=== PATIENT | male | born 1975 | race African-American/Black ===

== ENCOUNTER 2020-12-27 13:08 | Emergency (ER) | payer OTHER, SELFPAY ==
[2020-12-27 13:25] VITALS: BP 160/82; PULSE 70; RESP 20; TEMP 36.8; O2SAT 96
--- NOTE | 2020-12-27 13:40 | ED.SYNCOPE ---
HPI - Syncope General Chief Complaint: Syncope Stated Complaint: Fell out at work Source: patient Mode of arrival: ambulatory Limitations: no limitations History of Present Illness HPI narrative: 45-year-old male presents to [facility] stating that he had a syncopal episode at work today at 9:50 AM. Patient reports that he was standing and reaching for a beam and the next thing he remembered was waking up to people yelling his name. Patient is unsure of the exact amount of time that the syncopal episode lasted. Patient denies any current symptoms. Patient denies chest pain, shortness of breath, headache, dizziness, blurred vision, nausea or vomiting. Patient reports that he lives in [place] but is here working. Patient denies prior syncopal episode MD complaint: collapsed Onset (ago): hour(s) (4) Prodromal symptoms: none Injuries sustained associated with event: none Current symptoms: none Treatments prior to arrival: none Related Data Home Medications Medication Instructions Recorded Confirmed No Home Medications 12/27/20 12/27/20 Allergies Allergy/AdvReac Type Severity Reaction Status Date / Time No Known Allergies Allergy Verified 12/27/20 13:32 Review of Systems Constitutional: Constitutional: Denies chills, Denies fatigue, Denies fever(s) and Denies weakness Eyes: Eyes: Denies change in vision and Denies photophobia ENT: Denies dysphagia, Denies vertigo and Denies dizziness Cardiovascular: Cardiovascular: Denies chest pain, Denies rapid heart rate, Denies radiating jaw, neck or arm pain and Denies slow heart rate Respiratory: Respiratory: Denies dyspnea and Denies wheezing Gastrointestinal: Gastrointestinal: Denies diarrhea, Denies nausea and Denies vomiting Neurologic: Denies vertigo, Denies dizziness, Reports syncope, Denies headache(s), Denies focal weakness, Denies numbness and Denies weakness PMFSH Family History Family History (Updated 12/27/20 @ 13:43 by Angy Marshall APRN) Father Stomach cancer Social History Social History (Updated 12/27/20 @ 13:43 by Angy Marshall APRN) Smoking status: Never smoker Gender identity (if verbalized by the patient): Male Comments At time of signature, I agree with nursing past medical, surgical, social and family history. There is no relevant family history pertinent to the presenting complaint. Exam Const: General: healthy appearing and no acute distress Orientation/consciousness: patient oriented x3 Eyes: Conjunctivae: conjunctivae normal Pupils: Equal, round and reactive pupils present Neck: Neck: normal visual inspection Resp: Effort & Inspection: normal respiratory effort, not labored and not tachypneic Auscultation: clear to auscultation bilaterally Cardio: Rate: regular rate, not bradycardic and not tachycardic Rhythm: regular rhythm GI: Inspection: non-distended GI Palp: Yes Soft to palpation, No Tenderness to palpation present (GI), No Guarding due to palpation present (GI) and No Rebound tenderness present Neuro: General: patient oriented x3, moves all extremities, no meningeal signs and no focal motor deficits Cranial nerves: Yes Nystagmus not present and No Nystagmus present Speech: normal speech and No Abnormal speech present Gait exam (Neuro): Normal gait present Extrem: General: normal to inspection Psych: Appearance: grossly normal Mental Status: mental status grossly normal Affect: normal affect Attitude: cooperative Thought content: Yes Normal thought content present Course Vital Signs Vital signs: Vital Signs Temperature 36.8 C 12/27/20 13:25 Pulse Rate 70 12/27/20 13:25 Respiratory Rate 12/27/20 13:25 Blood Pressure 160/82 H 12/27/20 13:25 Pulse Oximetry 96 12/27/20 13:25 Temperature 36.8 C 12/27/20 13:25 Pulse Rate 70 12/27/20 13:25 Respiratory Rate 20 12/27/20 13:25 Blood Pressure 160/82 H 12/27/20 13:25 Pulse Oximetry 96 12/27/20 13:25 MDM - Sync
[2020-12-27 13:47] LABS: Glucose Point of Care 107 mg/dl (65-105)
[2020-12-27 13:50] VITALS: BP 147/61; PULSE 63
[2020-12-27 13:52] VITALS: BP 126/76; PULSE 63
[2020-12-27 13:54] VITALS: BP 122/75; PULSE 70
--- NOTE | 2020-12-27 14:10 | ECG_ITS ---
Measurements Intervals [place] Rate: 60 P: 41 SC: 226 QRS: -70 QRSD: 175 T: 10 QT: 451 QTc: 452 Interpretive Statements SINUS RHYTHM WITH FIRST DEGREE AV BLOCK RIGHT BUNDLE BRANCH BLOCK LEFT ANTERIOR FASCICULAR BLOCK ABNORMAL ECG Electronically Signed On 12-27-2020 17:04:54 CDT by Yahir López D.O.
== END 2020-12-27 14:15 | disposition left against medical advice (07) ==
PROVIDERS: Emergency Provider Nurse Practitioner Family
DX: R55 Syncope and collapse (principal)
CPT/HCPCS: 82948; 93005; 99213; G0463

== ENCOUNTER 2020-12-27 14:40 | Emergency (ER) | payer OTHER, SELFPAY ==
--- NOTE | ~2020-12-27 | CT_ITS ---
EXAMINATION: CT brain wo con DATE: 12/27/2020 17:09 INDICATION: Syncope. Diffuse headache. TECHNIQUE: Computed tomography (CT) of the head was performed without intravenous contrast. The mA wa s adjusted according to patient size. Iterative reconstruction technique was employed. Exam dose: 60 5.33 mGy-cm total exam DLP. COMPARISON: None FINDINGS: No intracranial mass lesion or hemorrhage or cerebrovascular accident is detected. No midli ne shift or mass effect effect. Minimal bilateral basal ganglia calcification. Mild left carotid siphon internal carotid artery calci fication. No subdural or epidural hematoma. Normal ventricular size. No orbital mass lesion. Included paranasal sinuses and the mastoid air cells are unremarkable. No fracture or bone destruction of the cranial vault. IMPRESSION: No significant abnormality Reviewed, dictated and finalized at [facility]. Reviewed, dictated and finalized at [facility]. IMPRESSION: No significant abnormality
[2020-12-27 14:49] VITALS: BP 150/86; RESP 16; O2SAT 98
--- NOTE | 2020-12-27 14:52 | ECG_ITS ---
Measurements Intervals [place] Rate: 68 P: 41 DE: 225 QRS: -63 QRSD: 161 T: 5 QT: 433 QTc: 461 Interpretive Statements SINUS RHYTHM WITH FIRST DEGREE AV BLOCK RIGHT BUNDLE BRANCH BLOCK ABNORMAL ECG Electronically Signed On 12-27-2020 17:06:43 CDT by Yahir López D.O.
[2020-12-27 15:07] LABS: Basophils Percent Auto 0.5 % (0.2-1.2); Eosinophils Absolute Auto 0.1 K/mm3 (0-0.3); Eosinophils Percent Auto 0.9 % (0-4.4); Hematocrit 41.4 % (42.0-52.0); Hemoglobin 13.1 g/dL (14.0-18.0); Immature Granulocyte Absolute 0.03 K/mm3 (0.00-0.031); Immature Granulocyte Percent A 0.5 % (0-0.5); Lymphocytes Absolute Auto 2.07 K/mm3 (0.9-3.2); Lymphocytes Percent Auto 31.8 % (18.3-44.2); Mean Corpuscular HGB Conc 31.6 g/dl (32-36); Mean Corpuscular Hemoglobin 23.6 pg (26-34); Mean Corpuscular Volume 74.7 fl (80-100); Mean Platelet Volume 10.2 fl (7.4-10.4); Monocytes Absolute Auto 0.8 K/mm3 (0.1-0.6); Neutrophils Absolute Auto 3.5 K/mm3 (1.3-6.7); Neutrophils Percent Auto 54.3 % (45.5-73.1); Platelet Count Result 213 k/mm3 (150-375); Red Blood Count 5.54 M/mm3 (4.6-6.20); Red Cell Distribution Width 14.6 % (11.5-14.5); White Blood Count 6.5 K/mm3 (4.5-10.0)
[2020-12-27 15:13] LABS: Anion Gap 9 mmol/L (8-16); Blood Urea Nitrogen 12 mg/dL (9-20); Calcium 9.4 mg/dL (8.4-10.2); Carbon Dioxide 28 mmol/L (22-30); Chloride 104 mmol/L (98-107); Estimated CRCL calculation 124 ml/min; Estimated Glomerular Filt Rate > 60; Glucose 101 mg/dL (75-110); Potassium 3.9 mmol/L (3.4-5.0); Sodium 141 mmol/L (137-145)
[2020-12-27 16:35] VITALS: BP 137/88; PULSE 73; RESP 17; O2SAT 98
--- NOTE | 2020-12-27 17:48 | ED.GENADULT ---
HPI - General Adult General Chief complaint: Syncope Stated complaint: syncope Time Seen by Provider: 12/27/20 16:50 Source: patient History of Present Illness HPI narrative: Patient is a 45 y/o male complaining of syncopal episode. He states that he was at work and passed out. He remember people standing around him calling his name when he was sitting on the ground. He is not sure how long he was out for. He denies any injury from fall down. He has no headache, neck pain, back pain, chest pain or abdominal pain. He has no focal weakness or numbness. He is able to walk without difficulty. Of note, he was evaluated at [facility] and left AMA. Related Data Home Medications Medication Instructions Recorded Confirmed No Home Medications 12/27/20 12/27/20 Allergies Allergy/AdvReac Type Severity Reaction Status Date / Time No Known Allergies Allergy Verified 12/27/20 13:32 Review of Systems Constitutional: Constitutional: Denies chills, Denies fever(s), Denies headache(s) and Denies weakness Eyes: Eyes: Denies blurry vision ENT: Denies headache(s) and Denies neck pain Cardiovascular: Cardiovascular: Denies chest pain and Denies dyspnea Respiratory: Respiratory: Denies cough and Denies dyspnea Gastrointestinal: Gastrointestinal: Denies abdominal pain, Denies diarrhea, Denies nausea and Denies vomiting Genitourinary: Genitourinary: Denies hematuria and Denies dysuria Musculoskeletal: Musculoskeletal: Denies back pain and Denies neck pain Neurologic: Reports syncope, Denies headache(s) and Denies weakness [facility] Family History Family History Father Stomach cancer Social History Social History Smoking status: Never smoker Gender identity (if verbalized by the patient): Male Exam Const: General: no acute distress and well developed Orientation/consciousness: oriented to person, oriented to place, oriented to time and patient oriented x3 HENMT: Head: normocephalic Ears: external ears normal General nose exam: Normal external nose present Eyes: General: appearance normal, both eyes and all related structures Conjunctivae: conjunctivae normal Neck: Neck: normal visual inspection and full ROM Chest: Chest palpation & inspection: normal inspection of the chest and no tenderness Resp: Effort & Inspection: normal respiratory effort Auscultation: clear to auscultation bilaterally Cardio: Rate: regular rate Rhythm: regular rhythm GI: GI Palp: No abdominal tenderness and Yes Soft to palpation Skin: General skin exam: normal color and turgor normal Neuro: General: oriented to person, oriented to place, oriented to time and patient oriented x3 Cranial nerves: Yes CN's II-XII intact bilaterally Cognition (Neuro): normal cognition Speech: normal speech Motor exam (neuro): 5/5 motor strength present throughout Sensory Exam: normal sensation Coordination: [id number] test normal and cauh-hb-thum test normal Extrem: General: normal to inspection, full ROM and no pedal edema Psych: Appearance: grossly normal Mental Status: mental status grossly normal Affect: normal affect Course Reevaluation(s) Reevaluation #1: I advised patient to be admitted for observation. I also offered contacting O/C physician for close follow up if he wants to be discharged. He refuses both options. He states that he just wants a note for going back to work. I informed patient that it's better to have a more comprehensive evaluation before going back to work. Patient does not want to have anything else done. I informed patient of the risks of arrhythmia, sudden etc. Patient still does not want any further evaluation. He wants to leave A. He is awake, alert and competent to make medical decision for himself. He is instructed to follow up with PCP DANYA. Date: 12/27/20 Time: 17:50 Vital Signs Vital signs: Vital Signs
== END 2020-12-27 17:48 | disposition left against medical advice (07) ==
LOC: ANHED 17:19
PROVIDERS: Emergency Provider Emergency Medicine
DX: R55 Syncope and collapse (principal); I44.0 Atrioventricular block, first degree; I45.10 Unspecified right bundle-branch block
CPT/HCPCS: 36415; 70450; 80048; 85025; 93005; 99284

== ENCOUNTER 2022-10-29 15:46 | Emergency (ER) | payer OTHER, SELFPAY ==
--- NOTE | ~2022-10-29 | CT_ITS ---
EXAMINATION: CT abdomen pelvis wo con DATE: 10/29/2022 17:25 INDICATION: Hematuria TECHNIQUE: Computed tomography (CT) of the abdomen and pelvis was performed without intravenous contr ast. Automated exposure control and iterative reconstruction technique were employed. Exam dose: 155 1.21 mGy-cm total exam DLP. COMPARISON: None. 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 Normal heart size. No pericardial or pleural effusion. The liver, gallbladder, bile ducts, pancreas, pancreatic duct, spleen, and adrenal glands are unremar kable. There is a punctate nonobstructing cortical calcification of the anterior mid right kidney. Oc casional small renal cysts are suggested. No ureteral calculus or hydroureteronephrosis. The urinary bladder and prostate gland appear unremarkable. Normal caliber of the abdominal aorta. No intraperitoneal or retroperitoneal or pelvic mass lesion or adenopathy or ascites. Normal appendix. Minimal sigmoid diverticulosis; no CT evidence of diverticulitis. No bowel obstructi on, bowel wall thickening, pneumatosis or intraperitoneal free air is detected. No suspicious osteolytic or osteoblastic lesions. IMPRESSION: Pinpoint nonobstructing right renal calculus Small renal probable cysts Normal appendix Minimal diverticulosis of the colon; no evidence of diverticulitis Reviewed, dictated and finalized at [facility]. Reviewed, dictated and finalized at [facility].
[2022-10-29 15:48] VITALS: BP 160/72; PULSE 97; RESP 18; TEMP 36.6; O2SAT 100
[2022-10-29 16:31] LABS: Appearance Urine Clear (Clear); Bacteria Urine None Seen /hpf; Bilirubin Urine Negative (Negative); Blood Urine 3+ (Negative); Color Urine Dark Yellow (Yellow); Glucose Urine UA Negative (Negative); Ketones Urine Trace mg/dL (Negative); Leukocyte Esterase Ur Trace LEU/UL (Negative); Nitrate Urine Negative (Negative); Non Pathogenic Casts 0-2; Protein Urine 2+ mg/dL (Negative); RBC Urine >100 /hpf (0-2); Specific Grav Ur 1.031 (1.001-1.035); Squamous Epithelial Cell Urine None seen /hpf (Few); WBC Urine 0-5 /hpf
[2022-10-29 16:33] LABS: Add Urine Microscopic? YES
--- NOTE | 2022-10-29 17:40 | ED.GENADULT ---
HPI - General Adult General Chief complaint: Urogenital-Male Stated complaint: hematuria, burning Time Seen by Provider: 10/29/22 15:54 History of Present Illness HPI narrative: Patient is a 47-year-old male who presents ER with hematuria. Noticed it today. Reports he has been having some burning and discomfort in his perineum over the last 5 days. Noticed blood today after urinating. No flank pain or abdominal discomfort. No history of kidney stones. Denies STI exposure. No discharge from penis. Denies testicular pain. Related Data Home Medications Medication Instructions Recorded Confirmed No Home Medications 12/27/20 12/27/20 Allergies Allergy/AdvReac Type Severity Reaction Status Date / Time No Known Allergies Allergy Verified 10/29/22 15:57 Review of Systems Constitutional: Constitutional: Denies chills and Denies fever(s) Gastrointestinal: Gastrointestinal: Denies abdominal pain, Denies diarrhea, Denies nausea and Denies vomiting Genitourinary: Genitourinary: Reports hematuria, Denies oliguria, Reports dysuria, Denies penile discharge and Denies testicular pain PMFSH Past Medical History Medical History (Updated 10/29/22 @ 18:13 by Tremayne Virk MD) Healthy adult male Surgical History Surgical History (Updated 10/29/22 @ 18:13 by Tremayne Virk MD) No pertinent past surgical history Family History Family History Father Stomach cancer Social History Social History Smoking status: Never smoker Gender identity (if verbalized by the patient): Male Exam Narrative: GENERAL: Well-appearing, well-nourished, and in no acute distress. HEAD: Normocephalic, atraumatic. CHEST: Clear to auscultation. No respiratory distress. HEART: Regular rate and rhythm. Normal peripheral pulses. ABDOMEN: Soft, nontender, nondistended. : Normal-appearing uncircumcised penis without discharge. No tenderness of the testicles or epididymis. Skin appears normal the perineum. EXTREMITIES: Normal range of motion. No edema. SKIN: Warm, dry, no rash. NEURO: Alert and oriented x3. PSYCH: Normal mood and affect. Course Course Emergency Course: Patient resting comfortably. Informed of results. Suspect patient passed a kidney stone causing his hematuria. Patient aware of diagnosis and treatment plan. Vital Signs Vital signs: Vital Signs Temperature 97.8 F 10/29/22 15:48 Pulse Rate 97 10/29/22 15:48 Respiratory Rate 18 10/29/22 15:48 Blood Pressure 160/72 H 10/29/22 15:48 Pulse Oximetry 100 10/29/22 15:48 Temperature 97.8 F 10/29/22 15:48 Pulse Rate 97 10/29/22 15:48 Respiratory Rate 18 10/29/22 15:48 Blood Pressure 160/72 H 10/29/22 15:48 Pulse Oximetry 100 10/29/22 15:48 Medical Decision Making Vital Signs Vital Signs: Vital Signs Temperature 97.8 F 10/29/22 15:48 Pulse Rate 97 10/29/22 15:48 Respiratory Rate 18 10/29/22 15:48 Blood Pressure 160/72 H 10/29/22 15:48 Pulse Oximetry 100 10/29/22 15:48 Temperature 97.8 F 10/29/22 15:48 Pulse Rate 97 10/29/22 15:48 Respiratory Rate 18 10/29/22 15:48 Blood Pressure 160/72 H 10/29/22 15:48 Pulse Oximetry 100 10/29/22 15:48 Lab Data Labs: Lab Results 10/29/22 Range/Units 16:20 Urine Color Dark yellow (Yellow) Urine Appearance Clear (Clear) Urine pH 6.0 (5.0-9.0) Ur Specific [place] 1.031 (1.001-1.035) Urine Protein 2+ H (Negative) mg/dL Urine Glucose (UA) Negative (Negative) mg/dL Urine Ketones Trace (Negative) mg/dL Ur Blood (Man) 3+ H (Negative) Urine Nitrate Negative (Negative) Urine Bilirubin Negative (Negative) Urine Urobilinogen 1.0 (<2.0) mg/dL Leukocyte Esterase Rfl Trace H (Negative) L[facility]/UL Urine RBC >100 H (0-2) /hpf Urine WBC 0-5 /hpf Ur Squamous Epith Cells None seen (Few) /hpf U
== END 2022-10-29 18:25 | disposition home or self-care (01) ==
PROVIDERS: Emergency Provider Emergency Medicine
DX: R31.9 Hematuria, unspecified (principal)
CPT/HCPCS: 74176; 81001; 99284